=== PATIENT | male | born 1955 | race Caucasian/White ===

== ENCOUNTER 2017-12-01 12:45 | Inpatient (IN) | payer OTHER ==
[~2017-12-01] VITALS: Ht 180.3 cm; Wt 68.0 kg
[~2017-12-01 12:45] MED LIST: ACYCLOVIR 400400 M1 PO; CLEOCIN HCL300 MG PO; DOXYCYCLINE 10100 MG PO; HYDROCODON-ACE1 EAC3; INVANZ 1GM/NS 101 GM IV; PERCOCET 10-321 EACH
[2017-12-01 13:02] VITALS: BP 131/89
[2017-12-01] MEDS ORDERED: BP MED PO (13:06)
[2017-12-01 13:29] LABS: ABSOLUTE BASOPHILS 0.1 thou/uL (0.0-0.2); ABSOLUTE EOSINOPHILS 0.4 thou/uL (0.0-0.7); ABSOLUTE LYMPHOCYTES 2.2 thou/uL (0.8-5.3); ABSOLUTE MONOCYTES 1.2 thou/uL (0.0-1.2); ABSOLUTE NEUTROPHILS 6.7 thou/uL (1.6-8.1); BASOPHILS 0.6 %; EOSINOPHILS 4.1 %; HEMATOCRIT 44.1 % (42.0-52.0); LYMPHOCYTES 20.6 %; MCH 31.2 pg (26.0-34.0); MCV 91.7 fL (80.0-100.0); MONOCYTES 11.3 %; MPV 6.3 fl. (7.2-11.1); NUCLEATED RBCS 0 /100WBC; PLATELET COUNT* 311 thou/uL (150-400); POLYS 63.4 %; RBC 4.82 mil/uL (4.50-6.00); RDW-CV 13.4 % (10.5-14.5); WBC 10.6 thou/uL (4.0-11.0)
[2017-12-01 13:38] LABS: ANION GAP 9 mmol/L (7-16); BUN 10 mg/dL (7-18); CALCIUM 8.9 mg/dL (8.5-10.1); CHLORIDE 89 mmol/L (98-107); CO2 29 mmol/L (21-32); CREATININE 0.6 mg/dL (0.6-1.3); GLUCOSE 105 mg/dL (70-99); POTASSIUM 3.7 mmol/L (3.5-5.1); SODIUM 127 mmol/L (136-145)
[2017-12-01 13:39] LABS: APTT 24.9 Seconds (25.0-31.3); PROTIME 9.6 Seconds (9.20-11.50)
[2017-12-01 13:46] LABS: ALBUMIN 4.5 g/dL (3.4-5.0); ALKALINE PHOSPHATASE 46 U/L (46-116); SGOT 33 U/L (15-37); SGPT 33 U/L (30-65); TOTAL BILIRUBIN 0.4 mg/dL (<0.1-1.0); TOTAL PROTEIN 8.6 g/dL (6.4-8.2); TROPONIN-I LEVEL <0.06 ng/mL (<0.06)
--- NOTE | 2017-12-01 15:11 | NUR ---
SEE SEDATION FLOW SHEET
[2017-12-01 15:29] VITALS: BP 147/85
[2017-12-01 15:50] VITALS: BP 144/72
--- NOTE | 2017-12-01 17:03 | NUR ---
RECEIVED REPORT FROM OKSANA PANDEY. ASSESSMENT CHARTED. AFEBRILE. VITALS STABLE. CHEST TUBE ON RIGHT SIDE. 6L NC. WILL CONTINUE TO MONITOR. FAMILY UPDATED ON PLAN OF CARE.
--- NOTE | 2017-12-01 19:42 | NUR ---
DR LOPES HERE TO ASSESS PT, PT STATES DOES NOT KNOW WHAT B/P MEDICATION HE TALKES DAILY AT HS FOR B/P CONTROL, STATES PHARMACY IS [facility] IN [facility], DR LOPES ORDERED PHARMACY BE CONTACTED TO CLARIFY PT B/P MEDICATION AND START THIS MEDICATION TONIGHT, CALLED [facility] IN [facility], PER PHARMACIST PT PRESCRIBED LISINOPRIL/HCTZ 10MG/12.5MG PO DAILY, WILL START MEDICATION TONIGHT ORDERED.
[2017-12-01] MEDS ORDERED: HYDROCHLOROTH12.5 M1 PO (19:47)
[2017-12-01] MEDS ORDERED: LISINOPRIL10 MG PO (19:48)
[2017-12-01 20:00] VITALS: BP 134/80
[2017-12-01 20:08] VITALS: BP 137/78
[2017-12-01 22:00] VITALS: BP 119/70
[2017-12-02] VITALS: BP 121/70
[2017-12-02 02:00] VITALS: BP 127/71
[2017-12-02 03:55] LABS: HEMOGLOBIN 13.2 gm/dL (14.0-18.0); MCH 30.7 pg (26.0-34.0); MCHC 33.9 g/dL (28.0-37.0); MCV 90.5 fL (80.0-100.0); MPV 6.4 fl. (7.2-11.1); RBC 4.31 mil/uL (4.50-6.00); RDW-CV 13.4 % (10.5-14.5); WBC 8.5 thou/uL (4.0-11.0)
[2017-12-02 04:00] VITALS: BP 137/78
[2017-12-02 04:15] LABS: ALBUMIN 3.4 g/dL (3.4-5.0); CALCIUM 8.1 mg/dL (8.5-10.1); CREATININE 0.6 mg/dL (0.6-1.3); TOTAL BILIRUBIN 0.6 mg/dL (<0.1-1.0); TOTAL PROTEIN 6.3 g/dL (6.4-8.2)
[2017-12-02 04:17] LABS: POTASSIUM 5.1 mmol/L (3.5-5.1)
[2017-12-02 06:00] VITALS: BP 134/69
--- NOTE | 2017-12-02 06:11 | NUR ---
PROGRESSING TOWARDS GOALS, AWAKE, ALERT, AND CONVERSATIVE THIS AM, MORPHINE 2MG IVP PRN X1 HELPFUL FOR PAIN MANAGEMENT, SCHEDULED IBRUPROFEN AND ULTRAM EFFECTIVE FOR PAIN MANAGEMENT THIS SHIFT, DENIES SOA OR DIFFICULTY BREATHING, AFEBRILE, OXYGEN 6L PER NC WITH SAO2 =>99% THROUGHOUT NOC, NSR TRACING PROTOTYPE CARPENTER, USING URINAL TO VOID YULY URINE, BED REMAINS IN LOW AND LOCKED POSITON, USING CALL LIGHT APPROPRIATELY, CALL LIGHT REMAINS IN REACH, HOURLY ROUNDING DONE PER POLICY.
[2017-12-02 07:48] VITALS: BP 134/69
--- NOTE | 2017-12-02 11:33 | NUR ---
RECEIVED REPORT FROM OKSANA KASPER. ASSESSMENT CHARTED. AFEBRILE. CHEST TUBE STILL IN PLACE. VITALS STABLE. 6L NC. DENIES PAIN. PT NOW TELE STATUS. REPORT GIVEN TO OKSANA ARRIOLA. PT TRANSFERRED VIA WHEELCHAIR TO 228 WITH BELONGINGS.
--- NOTE | 2017-12-02 12:52 | NUR ---
RECEIVED REPORT FROM GORDO GANDHI IN ICU. PT TRANSFERED TO [facility] AROUND 1140, ASSUMED CARE. PT A&O X4, VSS, O2 SAT 99% ON 6L PER NC. CHEST TUBE IN PLACE TO RIGHT CHEST, DRAINING SANGUINOUS FLUID. PT DENIES PAIN OR DISCOMFORT AT THIS TIME. PT EATING AND DRINKING WITHOUT ISSUE. IV PATENT AND INFUSING IVF. PT USING URINAL TO VOID, URINE DARK YELLOW. FAMILY AT BEDSIDE. THIS RN HAS REVIEWED AND AGREES WITH ASSESSMENT AND CHARTING OF OKSANA CARO. TRAINING DEVELOPER PLACED TRACING SR. PT ORIENTED TO ROOM, BED AND CALL LIGHT. CALL LIGHT IS WITHIN REACH. FALL PRECAUTIONS IN PLACE. HOURLY ROUNDING COMPLETED. WCTM.
[2017-12-02 13:46] LABS: CALCIUM 8.7 mg/dL (8.5-10.1); CREATININE 0.5 mg/dL (0.6-1.3)
[2017-12-02 16:00] VITALS: BP 111/58
--- NOTE | 2017-12-02 18:40 | NUR ---
PT REMAINS A&O X4. VSS. O2 SAT >90% ON 6L PER NC. PT REPORTS PAIN IN RIGHT SIDE CHEST/BACK (THORACIC) CONTROLLED WITH SCHEDULED PAIN MEDICATION. GRINDER MILL OPERATOR REMAINS IN PLACE WITH NO CHANGES THIS SHIFT. PT EATING AND DRINKING WITHOUT ISSUE. FAMILY VISITED EARLY THIS AFTERNOON. PT URINATING PER URINAL, NO ISSUES. RIGHT CHEST TUBE REMAINS IN PLACE - OUTPUT 10ML SINCE 1140 THIS AM. PT PROGRESSING TOWARDS GOALS. PT CURRENTLY RESTING IN BED. LOW FALL RISK PRECAUTIONS IN PLACE. CALL LIGHT IS WITHIN REACH. HOURLY ROUNDING PERFORMED. WCTM TO FOR DURATION OF SHIFT.
[2017-12-03] VITALS: BP 105/55
[2017-12-03 04:00] VITALS: BP 126/66
--- NOTE | 2017-12-03 04:46 | NUR ---
PT ALERT ORIENTED. R CT TO H20 SEAL. NO AIR LEAK. NO SUBQ AIR NOTED. PT RATES PAIN 1/10. GIVING SCHEDULED MOTRIN AND TRAMADOL. TELEMETRY SHOWS SR. PT UP WITH ASSIST WITH LINES. WILL CONTINUE TO MONITOR.
[2017-12-03 04:52] LABS: HEMATOCRIT 36.4 % (42.0-52.0); HEMOGLOBIN 12.4 gm/dL (14.0-18.0); MCV 91.3 fL (80.0-100.0); MPV 6.6 fl. (7.2-11.1); RBC 3.99 mil/uL (4.50-6.00); RDW-CV 13.1 % (10.5-14.5); WBC 6.9 thou/uL (4.0-11.0)
[2017-12-03 05:24] LABS: ALBUMIN 3.1 g/dL (3.4-5.0); CALCIUM 7.9 mg/dL (8.5-10.1); CREATININE 0.5 mg/dL (0.6-1.3); MAGNESIUM 1.8 mg/dL (1.8-2.4); POTASSIUM 4.2 mmol/L (3.5-5.1); TOTAL BILIRUBIN 0.6 mg/dL (<0.1-1.0); TOTAL PROTEIN 5.7 g/dL (6.4-8.2)
[2017-12-03 07:30] VITALS: BP 127/71
[2017-12-03 11:36] VITALS: BP 136/64
--- NOTE | 2017-12-03 12:37 | CON ---
[address] [address] CONSULTATION Name: GABE YI Room: [address] IN .R.#: [id number] Admission: 12/01/17 Attend Phys: Margy De Souza MD Discharge: Date of : 55 Report #: [id number] THIS REPORT FOR: //name// CC: Margy De Souza Ab Malone DATE OF SERVICE: 12/02/2017 REFERRING PHYSICIAN: Margy De Souza MD CHIEF COMPLAINT: Pneumothorax. HISTORY OF PRESENT ILLNESS: The patient is a 62-year-old male who sustained an injury after falling yesterday, injuring his right side. He had almost complete loss of consciousness, but recovered quickly. He experienced quite a bit of pain on the right side in his chest, became extremely dyspneic. He slipped and fell while attending to a dog that was caught in a tree with his secured collar. Once the dog was released, the patient began to try release the chain from the tree, slipped and fell. He made it home and came to the Emergency Room. He denies any complete loss of consciousness. He is not having any headache. He is denying cough, phlegm production. He is not having any fever, chills, nausea, vomiting. He does have pain associated with his recent fall. PAST MEDICAL HISTORY: Significant for hypertension. ALLERGIES: None known. REVIEW OF SYSTEMS: System review negative other than what is outlined above. SOCIAL HISTORY: He is a smoker 1 pack per day and has done so for several years. He is and lives with his . He is employed, works nights. FAMILY HISTORY: Positive for lung cancer in his father. There is a history of colon cancer as well. MEDICATIONS: Ibuprofen, lisinopril and morphine. PHYSICAL EXAMINATION: VITAL SIGNS: Blood pressure 134/69, respiratory rate 16 and nonlabored, pulse rate 82 and regular, temperature 97.9 degrees. GENERAL APPEARANCE: Awake, alert, oriented, no distress. HEAD: Atraumatic. EYES: Pupils are round, equal, reactive. ORAL CAVITY: Moist. No lesions. EARS: Reveal normal helical structures. No drainage from the [place] [address] CONSULTATION Name: KDGABE Do Room: [address]#: [id number] Admission: 12/01/17 Attend Phys: Margy De Souza MD Discharge: Date of : 55 Report #: [id number] NECK: There is no adenopathy, subcutaneous emphysema or mass effect. CHEST: Reveals a few faint end-expiratory wheezes. Breath sounds are equal bilaterally. Chest tube site is well dressed. There is no evidence of drainage or soilage on the dressing. The chest tube functions appropriately with fluctuation of the fluid within the chest tube. There is no evidence of air leak. CARDIOVASCULAR: Reveals regular rhythm. EXTREMITIES: Without edema. No evidence of clubbing. SKIN: Warm and dry, no rash. NEUROLOGIC: Moves all 4 extremities. His cognitive skills are normal. He moves appropriately. IMAGING: Initial chest x-ray, complete right pneumothorax. Chest x-ray today shows resolution with possibly a small apical pleural rim seen. No evidence of effusion. I cannot appreciate any fracture, although the meat hostess felt there may be a hairline fracture on the 4th right rib. LABORATORY DATA: Sodium 125, potassium 5.1, chloride 91, CO2 of 29, BUN of 10, creatinine 0.6. Hemoglobin and hematocrit of 13 and 39, white count 8500. ASSESSMENT: 1. Status post trauma to the right chest. 2. Presumed head trauma with near loss of consciousness. 3. Right pneumothorax secondary to the traumatic fall. 4. Tobacco abuse. 5. Chronic obstructive airways disease most likely, although this needs to be better defined on an outpatient basis. PLAN: Currently, since I do not visualize an air leak, we will have suction removed or discontinued. Repeat an x-ray. In the event that his x-ray looks stable, we will leave the suction off. If there continues to be no evidence of air leak, then the chest tube can start to be clamped and possibly removed in the next 24-48 hours. In addition, we will initiate bronchodilator therapy. The patient was advised to discontinue smoking. <ELECTRONICALLY SIGNED> By: Kristine Crenshaw MD 12/03/17 [id number] Pedraza MD /nt
--- NOTE | 2017-12-03 14:00 | NUR ---
RECEIVED PT CARE 0700. PT IS ALERT AND ORIENTED X4. VSS. FLIGHT ENGINEER PERFORMANCE QUALIFIED TRACING SB. O2 SAT 100% ON 2L NC. TITRATED TO ROOM AIR. PATIENTS CHEST TUBE CAME DISCONNECTED FROM WATERSEAL AT SOME POINT THIS AM AFTER HIS CHEST XRAY. RECONNECTED PATIENT AND PULMONARY WAS ON FLOOR TO SEE THIS PATIENT. STITCHES REMOVED AROUND CHEST TUBE AND 2 NEW STITCHES WERE PLACED PRIOR TO DISCONTINUING HIS CHEST TUBE. VASELINE GAUZE PLACED WITH ABD PAD SECURED FIRMLY WITH A PRESSURE DRESSING. PRN PAIN MEDICATION GIVEN WITH GOOD RELIEF. AM ASSESSMENT CHARTED. MEDS PER MAR. PATIENT UP IN THE CHAIR FOR BREAKFAST. NEW IV STARTED IN LEFT FA PER ENVELOPE SEALER OPERATOR AND HER INSTRUCTOR. PATIENT UPDATED ON PLAN OF CARE. CALL LIGHT WITHIN REACH. WILL CONTINUE TO MONITOR.
--- NOTE | 2017-12-03 14:02 | NUR ---
MET WITH PT AND SON TO DISCUSS HOME SITUATION/DC PLANNING. PT LIVES WITH , WORKS OUTSIDE THE HOME AND IS INDEPENDENT AND ACTIVE. USES NO EQUIPMENT. SON LIVES NEXT DOOR. PT WAS TRYING TO UNTIE SON'S DOG IN THE SNOW AND HAD A FALL RECSULTING IN RIB FX AND PNEUMO. CHEST TUBE WAS REMOVED TODAY, PT HOPES IT STAYS OUT FOR 'GOOD.' TALKED WITH PT ABOUT SPLINTING HIS COUGH/SNEEZE WITH FOLDED BLANKET. HE PLANS TO RETURN HOME AT DC AND HOPES TO NOT BE OFF WORK TOO LONG, ENCOURAGED HIM TO DISCUSS WITH DR. VÁSQUEZ FOLLOW
[2017-12-03 16:23] VITALS: BP 139/75
[2017-12-03 21:27] VITALS: BP 134/82
[2017-12-04] VITALS: BP 131/77
[2017-12-04 04:00] VITALS: BP 138/76
--- NOTE | 2017-12-04 04:00 | NUR ---
ASSUMED PT CRAE AT 1930, PT IS TRACIGN NSR ON THE MONITOR, ON RA SATTING MID TO HIGH 90'S. PT C/O RIGHT SIDED CHEST PAIN ONCE THIS SHIFT, KINJAL PAIN MEDICATION GIVEN PER OCT. PT HAS IVF INFUSING PER OCT. PT IS UP STB TO THE BR. PT SLEPT ON AND OFF THROUGHOUT THE SHIFT. BED IN LOW POSITION, CALL LIGHT IN REACH, BED ALARM ON, YELLOW ARM BAND AND SOCKS IN PALCE. HOURLY ROUNDING COMPLETED FOR PT SAFETY.
[2017-12-04 04:56] LABS: HEMATOCRIT 34.8 % (42.0-52.0); HEMOGLOBIN 11.8 gm/dL (14.0-18.0); MCH 31.2 pg (26.0-34.0); MCHC 33.8 g/dL (28.0-37.0); MCV 92.2 fL (80.0-100.0); MPV 6.4 fl. (7.2-11.1); RBC 3.78 mil/uL (4.50-6.00); RDW-CV 13.6 % (10.5-14.5); WBC 6.9 thou/uL (4.0-11.0)
[2017-12-04 05:16] LABS: CALCIUM 8.3 mg/dL (8.5-10.1); CREATININE 0.5 mg/dL (0.6-1.3); POTASSIUM 4.2 mmol/L (3.5-5.1)
[2017-12-04 07:40] VITALS: BP 137/74
--- NOTE | 2017-12-04 09:01 | NUR ---
RECIEVED REPORT FROM JOSE D AND ASSUMED CARE OF PT @ 8022. PT IS A/O X4,VSS,TRACING SR ON MONITOR.LUNG SOUNDS CLEAR WITH O2 SAT 96% ON ROOM AIR.PT STATES LAST BM WAS ON 11/30/17.IV LEFT FOREARM PATENT WITH NS RUNNING AT 100ML/HR.PT IS CALM AND COOPERATIVE WITH NO C/O PAIN AT TIME OF ASSESSMENT. PT IS UP SBA TO THE BATHROOM.PT WAS LEFT SITTING ON EDGE OF BED WITH CALL LIGHT AND FALL PRECAUTIONS IN PLACE. PT HOPES TO BE DISCHARGED TODAY AFTER SEEING DOCTORS.PRESSURE DRESSING INTACT ON RIGHT SIDE OF THORAX.
[2017-12-04] MEDS ORDERED: PREDNISONE 20 M20 MG PO (11:50)
[2017-12-04] MEDS ORDERED: TRAMADOL 50 MG50 MG PO (11:50)
[2017-12-04] MEDS ORDERED: IBUPROFEN 600600 M1 PO (11:50)
[2017-12-04 11:53] VITALS: BP 140/78
[2017-12-04 12:45] VITALS: BP 140/78
--- NOTE | 2017-12-04 13:27 | NUR ---
DISCHARGE PAPERWORK GONE OVER AND GIVEN TO PT.IV REMOVED.HEART MONITOR REMOVED AND RETURNED TO NURSES STATION.PT EDUCATED ON DRESSING CHANGE AND SUPPLIES GIVEN.ALL PATIENT BELONGINGS PACKAGED AND TAKEN WITH PATIENT.PT WHEELED OUT WITH NURSING STAFF TO [facility] @ 3470.
== END 2017-12-04 13:20 | disposition home or self-care (01) | DRG 200 ==
LOC: M.ERS 12:45 → M.ICU 15:10 → M.TBA-ER 15:10 → M.ICU 15:44 → M.2W 12-02 11:36
PROVIDERS: Personal Emergency Response Attendant; ADMIT Internal Medicine
PROC: 0W9930Z Drainage of Right Pleural Cavity with Drainage Device, Percutaneous Approach (ICD-10-PCS; principal; 2017-12-01)
DX: S27.0XXA Traumatic pneumothorax, initial encounter (principal); S22.31XA Fracture of one rib, right side, initial encounter for closed fracture; E87.1 Hypo-osmolality and hyponatremia; J44.9 Chronic obstructive pulmonary disease, unspecified; S42.114A Nondisplaced fracture of body of scapula, right shoulder, initial encounter for closed fracture; F17.210 Nicotine dependence, cigarettes, uncomplicated; I10 Essential (primary) hypertension; Z85.118 Personal history of other malignant neoplasm of bronchus and lung; Z80.0 Family history of malignant neoplasm of digestive organs; Z79.899 Other long term (current) drug therapy; W18.39XA Other fall on same level, initial encounter; Y93.89 Activity, other specified; Y92.89 Other specified places as the place of occurrence of the external cause; Y99.8 Other external cause status; Z88.6 Allergy status to analgesic agent